=== PATIENT | male | born 1990 | race Caucasian/White ===

== ENCOUNTER 2019-01-17 18:15 | Emergency (ER) | payer OTHER ==
[~2019-01-17] VITALS: Ht 188 cm; Wt 54.4 kg
[2019-01-17] MEDS ORDERED: NAPROSYN500 MG PO (19:23)
[2019-01-17 19:54] VITALS: BP 134/85
== END 2019-01-17 19:54 | disposition home or self-care (01) ==
LOC: M.ERS 18:15
DX: S61.304A Unspecified open wound of right ring finger with damage to nail, initial encounter (principal); S67.194A Crushing injury of right ring finger, initial encounter; W23.0XXA Caught, crushed, jammed, or pinched between moving objects, initial encounter; Y93.89 Activity, other specified; Y92.89 Other specified places as the place of occurrence of the external cause; Y99.8 Other external cause status

== ENCOUNTER 2021-04-09 20:41 | Emergency (ER) | payer OTHER ==
[~2021-04-09] VITALS: Ht 188 cm; Wt 78.9 kg
[~2021-04-09 20:41] MED LIST: NAPROSYN500 MG PO
[2021-04-09] MEDS ORDERED: AUGMENTIN 875-1 EACH PO (21:54)
[2021-04-09] MEDS ORDERED: TRAMADOL 50 MG50 MG PO (21:54)
[2021-04-09 22:25] VITALS: BP 124/60
--- NOTE | 2021-04-10 14:21 | EKG ---
[place] [address] ELECTROCARDIOGRAM REPORT Name: PAVAN WANG Room: 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
--- NOTE | 2021-04-12 11:29 | EKG ---
[place] [address] ELECTROCARDIOGRAM REPORT Name: PAVAN WANG Room: [facility]#: [id number] Admission: 04/09/21 Attend Phys: Discharge: 04/09/21 Date of : [birth year] Date of Service: 04/09/212050 Report #: [id number] THIS REPORT FOR: //name// 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
== END 2021-04-09 22:26 | disposition home or self-care (01) ==
LOC: M.ERS 20:41
DX: J18.9 Pneumonia, unspecified organism (principal); Z20.822 Contact with and (suspected) exposure to COVID-19; I45.10 Unspecified right bundle-branch block